=== PATIENT | male | born 1985 | race African-American/Black ===

== ENCOUNTER 2016-06-09 07:10 | Emergency (ER) | payer SELFPAY ==
[~2016-06-09] VITALS: Ht 182.9 cm; Wt 80.0 kg
[~2016-06-09 07:10] MED LIST: MOBI15TA PO; ROBA750T PO
[2016-06-09 07:12] VITALS: BP 143/75; PULSE 75; RESP 14; TEMP 97.9; O2SAT 99
--- NOTE | 2016-06-09 07:36 | PD ---
HPI Chief Complaint: Bite or Sting Time Seen by Provider: 07:33 Travel History International Travel<30 days: No Contact w/Intl Traveler<30days: No Traveled to known affect area: No History of Present Illness HPI Patient comes in for evaluation of a dog bite to his left calf that occurred yesterday morning. Patient reports animal control was called but is uncertain as they were able to capture the dog or not. Patient does not know whose dog it was or if the rabies vaccines are up-to-date. Patient states he is uncertain of his last tetanus shot. Patient states he took a shower and cleaned his leg yesterday denies doing anything else for this. Patient having some tenderness around the sites of the bite without radiation. PFSH Past Medical History Arthritis: Yes (BOTH LEGS) Depression: Yes Diabetes: No Diminished Hearing: No Psychiatric: Yes Migraines: Yes Schizophrenia: Yes Past Surgical History Body Medical Devices: SCREWS IN RT KNEE Social History Alcohol Use: Yes (OCC) Tobacco Use: Yes (OCCASIONAL/CIGARS) Substance Use: Yes (MARIJUANNA OCCASIONALLY) Allergies-Medications (Allergen,Severity, Reaction): Coded Allergies: No Known Allergies (Verified , 06/09/16) Reported Meds & Prescriptions Reported Meds & Active Scripts Active Augmentin (Amoxicillin-Clavulanate) 875-125 mg Tab 875 Mg PO BID 10 Days not for use in CrCl <30 ml/min. Review of Systems Except as stated in HPI: all other systems reviewed are Neg Physical Exam Narrative GENERAL: Well-developed, well nourished, in no acute distress, and non-ill appearing. SKIN: Warm and dry. Multiple superficial abrasions and one bite wound noted left calf. They're mildly tender to palpation. Afebrile, nonerythematous, and without drainage. HEAD: Atraumatic. Normocephalic. EYES: Pupils equal and round. EOMI. No scleral icterus. No injection or drainage. ENT: No nasal bleeding or discharge. Mucous membranes pink and moist. NECK: Trachea midline. Supple. No nuclear rigidity. RESPIRATORY: No accessory muscle use. No respiratory distress. MUSCULOSKELETAL: No obvious deformities. No clubbing. No cyanosis. No edema. Full range of motion. NEUROLOGICAL: Awake and alert. No obvious cranial nerve deficits. Motor grossly within normal limits. Normal speech. PSYCHIATRIC: Appropriate mood and affect; insight and judgment normal. Data Data Last Documented VS Vital Signs Date Time Temp Pulse Resp B/P Pulse Ox O2 Delivery O2 Flow Rate FiO2 06/09/16 07:12 97.9 75 14 143/75 99 Orders Tetanus/Diphtheria Tox Adult (Tetanus/Di (06/09/16 07:45) Rabies Vaccine Human Cell Inj (Imovax In (06/09/16 07:45) Rabies Immune Globulin Inj (Hyperrab S/D (06/09/16 08:00) MDM Medical Decision Making Medical Screen Exam Complete: Yes Emergency Medical Condition: Yes Differential Diagnosis Dog bite, rabies exposure, wound check, wound infection, other Narrative Course The patient suffered animal bite wound. There is no evidence of deep tissue involvement and/or local tendon involvement. There was no evidence to suggest foreign bodies. Visual and tactile exams were unremarkable. There was no evidence of neurovascular injury as well. Rabies prophylaxis was discussed with the patient and exposure appears mod risk and indicated. Rabies prophylaxis and treatment plan was discussed with the patient. Human rabies immune globulin ( HRIG) and initial Rabies vaccine was begun in the ED. The patient was given signs and symptom warnings for infection, such as increasing pain, pain with movement of involved extremity, redness, swelling, associated heat, pus or fever. The patient was given antibiotics to cover mouth lisa and instructions for timely follow up for wound recheck. The patient agreed with plan of care. Animal control was contacted per hospital protocol. Patient in no obvious distress upon re-evaluation. Patient was asked if they wanted to speak to my attending, which the patient did not wish to do at this time. Any questions/concerns in reference to patient diagnosis/condition discussed and clarified prior to patient's discharge. Reinforced sheer importance of close follow up with the health department. Instructed patient to return to ED immediately, if symptoms return/worsen. Pt showed understanding of above instructions. Further instructions and recommendations were detailed in discharge paperwork. Pt ambulated without difficulty out of ED at discharge. Procedures Procedure Narrative Verbal consent was obtained. Area was cleaned and prepped. Rabies immunoglobulin was injected IM in the left calf around the site of the dog bite. Patient tolerated procedure well. There is no complications. Diagnosis Primary Impression: Dog bite of calf Qualified Code: S81.852A - Dog bite of calf, left, initial encounter Referrals: [facility]. Patient Instructions: Animal Bite (ED), General Instructions, Rabies Immune Globulin (By injection), Rabies Vaccine (By injection) Additional Instructions: Follow-up with the health department on Sunday for your second rabies immunization. You will need a total of 3 more rabies immunizations to prevent from getting rabies. You can return here for additional immunizations unable to get in at the health department. Take all medication as prescribed. Keep wound dry and clean as possible using soap and water. Use Neosporin to promote healing. Return to the emergency department if symptoms get worse. Scripts Amoxicillin-Clavulanate (Augmentin)875-125 mg [id number] Mg PO BID 10 Days Ref 0 not for use in CrCl <30 ml/min. Prov:Anibal Londono MD 06/09/16 Disposition: 01 DISCHARGE HOME Condition: Stable Destin Jeff Jun 09, 2016 07:36
[2016-06-09] MEDS ORDERED: RABIES VACCINE HUMAN DIPL CELL 2.5 UNITS/ML SYRINGE IM ONE (07:45)
[2016-06-09] MEDS ORDERED: RABIES IMMUNE GLOBULIN INJ 1,500 UNITS/10 ML VIAL IM ONE ×2 (07:45→08:00)
[2016-06-09] MEDS ORDERED: TETANUS/DIPHTHERIA TOXOID ADULT 0.5 ML VIAL IM ONE (07:45)
[2016-06-09] MEDS ORDERED: AUGM875T PO (07:49)
== END 2016-06-09 09:30 | disposition home or self-care (01) ==
LOC: NEPB 07:10
DX: S81.852A Open bite, left lower leg, initial encounter (principal); Z23 Encounter for immunization; Z72.0 Tobacco use; Z87.39 Personal history of other diseases of the musculoskeletal system and connective tissue; Z86.59 Personal history of other mental and behavioral disorders; Z86.69 Personal history of other diseases of the nervous system and sense organs; W54.0XXA Bitten by dog, initial encounter
CPT/HCPCS: 90375; 90471; 90472; 90675; 90714; 96372

== ENCOUNTER 2016-06-21 04:59 | Emergency (ER) | payer SELFPAY ==
[~2016-06-21] VITALS: Ht 180.3 cm; Wt 75.0 kg
[~2016-06-21 04:59] MED LIST changes: +AUGM875T PO; -MOBI15TA PO; -ROBA750T PO
[2016-06-21 05:03] VITALS: BP 108/65; PULSE 72; RESP 16; TEMP 97.5; O2SAT 99
[2016-06-21] MEDS ORDERED: ASPIRIN 81 MG CHEW TAB CHEW ONE (06:00)
[2016-06-21] MEDS ORDERED: HYOSCYAMINE 0.125 MG TAB PO STA (06:01)
[2016-06-21] MEDS ORDERED: LIDOCAINE VISCOUS 2% SOLN 15 ML UDC PO STA (06:01)
--- NOTE | 2016-06-21 06:13 | PD ---
HPI Chief Complaint: stomach pain Time Seen by Provider: 06:08 Travel History International Travel<30 days: No Contact w/Intl Traveler<30days: No Traveled to known affect area: No History of Present Illness HPI 31-year-old black male presents to emergency Department with complaints of diffuse abdominal discomfort. He states that this came on a few hours ago. Mild in intensity. Cramping in nature. He denies any nausea vomiting. No diarrhea or dysuria. He states that he does not recall what he had for dinner last night. He denies any fever chills, cough, congestion, back pain or urinary symptoms. PFSH Past Medical History Arthritis: Yes (BOTH LEGS) Depression: Yes Diabetes: No Diminished Hearing: No Psychiatric: Yes Migraines: Yes Schizophrenia: Yes Tetanus Vaccination: < 5 Years Past Surgical History Body Medical Devices: SCREWS IN RT KNEE Social History Alcohol Use: Yes (OCC) Tobacco Use: Yes (OCCASIONAL/CIGARS) Substance Use: Yes (MARIJUANNA OCCASIONALLY) Allergies-Medications (Allergen,Severity, Reaction): Coded Allergies: No Known Allergies (Verified , 06/09/16) Reported Meds & Prescriptions Reported Meds & Active Scripts Active Augmentin (Amoxicillin-Clavulanate) 875-125 mg Tab 875 Mg PO BID 10 Days not for use in CrCl <30 ml/min. Review of Systems Except as stated in HPI: all other systems reviewed are Neg Physical Exam Narrative GENERAL: Well-developed, well-nourished in no acute distress. Nontoxic appearing. The patient is sleeping in examination room. He's falling back asleep during my history and exam. He does not appear to be in any discomfort whatsoever. He has no change in body habitus her posture when I examine his abdomen. He appears to continue to sleep. HEAD: Normocephalic, atraumatic. EYES: Pupils equal round and reactive. Extraocular motions intact. No scleral icterus. No injection or drainage. ENT: TMs clear without erythema. The external auditory canals clear. Nose: clear . Posterior pharynx is pink and moist. No tonsillar edema or exudate. Uvula midline. Airway patent. NECK: Trachea midline.Supple, nontender, moves head freely. No central bony tenderness or spasm. CARDIOVASCULAR: Regular rate and rhythm without murmurs, gallops, or rubs. RESPIRATORY: Clear to auscultation. Breath sounds equal bilaterally. No wheezes , rales, or rhonchi. GASTROINTESTINAL: Abdomen soft, non-tender, nondistended. No hepato-splenomegaly , or palpable masses. No guarding. EXTREMITIES: No clubbing, cyanosis, or edema. No joint tenderness, effusion, or edema noted. BACK: Nontender without deformity or crepitance. No flank tenderness. Data Data Last Documented VS Vital Signs Date Time Temp Pulse Resp B/P Pulse Ox O2 Delivery O2 Flow Rate FiO2 06/21/16 05:03 97.5 72 16 108/65 99 Orders Aspirin Chew (Aspirin Chew) (06/21/16 06:00) Al-Mag Hy-Si 40-40-4 Mg/Ml Liq (Mag-Al P (06/21/16 06:15) Lidocaine 2% Viscous (Xylocaine 2% Visco (06/21/16 06:01) Hyoscyamine (Levsin) (06/21/16 06:01) [facility] Medical Decision Making Medical Screen Exam Complete: Yes Emergency Medical Condition: Yes Medical Record Reviewed: Yes Differential Diagnosis Differential diagnoses: Pancreatitis, gastritis, electrolyte abnormality, UTI, appendicitis, GERD, malingering, food poisoning, diverticulitis Narrative Course Patient's exam is reassuring. He does not appear to be having any discomfort. He sleeps through the majority of my exam. Patient will be given 2 Levsin and a GI cocktail with Maalox and lidocaine. Patient was feeling improved. This is abdominal pain-resolved Diagnosis Primary Impression: Abdominal pain Qualified Code: R10.84 - Generalized abdominal pain Additional Instructions: Rest. Increase fluids. Maalox. 2 Zantac [id number] twice a day. Follow-up with your medical doctor in the next 2-3 days. Return to the ER if any problems. Med/Other Pt SpecificInfo: No Meds Exist/No RX given Disposition: 01 DISCHARGE HOME Condition: Stable Humble Voss Jun 21, 2016 06:12
[2016-06-21] MEDS ORDERED: ALUMINUM/MAGNESIUM/SIMETH 30 ML CUP PO ONE (06:15)
[2016-06-21 08:26] VITALS: BP 114/75
== END 2016-06-21 08:28 | disposition home or self-care (01) ==
LOC: NEPB 04:59
DX: R10.9 Unspecified abdominal pain (principal); Z72.0 Tobacco use; F12.90 Cannabis use, unspecified, uncomplicated
CPT/HCPCS: 99284

== ENCOUNTER 2016-07-08 08:43 | Emergency (ER) | payer SELFPAY ==
[~2016-07-08] VITALS: Ht 182.9 cm; Wt 79.5 kg
[2016-07-08 08:44] VITALS: BP 109/59; PULSE 68; RESP 16; TEMP 98; O2SAT 97
[2016-07-08] MEDS ORDERED: predniSONE 20 MG TAB PO ONE (09:15)
[2016-07-08] MEDS ORDERED: diphenhydrAMINE HCL 50 MG CAP PO ONE (09:15)
[2016-07-08] MEDS ORDERED: PRED20 PO (09:20)
--- NOTE | 2016-07-08 09:22 | PD ---
HPI Chief Complaint: Skin Problem Time Seen by Provider: 09:12 Travel History International Travel<30 days: No Contact w/Intl Traveler<30days: No Traveled to known affect area: No History of Present Illness HPI 31-year-old male presents to the emergency department for evaluation of itchy rash that started yesterday. He states this started on his back and now is on his bilateral upper extremities. He denies any fevers or chills. Denies any swelling of lips, tongue, throat. No angioedema. No difficulty breathing. Patient does state that he stayed at a hotel room recently. He did use different soap. He denies any chronic medical problems or taking prescribed medications. He denies any known allergies. No abdominal pain. No nausea or vomiting. No chest pain. He has no other complaints at this time. No other close family members or friends have similar symptoms. Patient has not taken any [id number] medications. PFSH Past Medical History Hx Anticoagulant Therapy: No Arthritis: Yes (BOTH LEGS) Depression: Yes Cardiovascular Problems: No Chemotherapy: No Cerebrovascular Accident: No Diabetes: No Diminished Hearing: No Psychiatric: Yes Respiratory: No Migraines: Yes Schizophrenia: Yes Past Surgical History Body Medical Devices: SCREWS IN RT KNEE Social History Alcohol Use: Yes (OCC) Tobacco Use: Yes (OCCASIONAL/CIGARS) Substance Use: Yes (MARIJUANNA OCCASIONALLY) Allergies-Medications (Allergen,Severity, Reaction): Coded Allergies: No Known Allergies (Verified , 06/09/16) Reported Meds & Prescriptions Reported Meds & Active Scripts Active Augmentin (Amoxicillin-Clavulanate) 875-125 mg Tab 875 Mg PO BID 10 Days not for use in CrCl <30 ml/min. Review of Systems Except as stated in HPI: all other systems reviewed are Neg Physical Exam Narrative GENERAL: Well-developed well-nourished male patient, ambulatory. Afebrile. SKIN: Warm and dry. Patient has erythematous plaques to back and bilateral upper extremities. ENT: Mucosa pink and moist. No erythema or exudates. No uvular edema. No uvular , palatal, or tonsillar deviation. Airway patent. Nasal turbinates appear normal without nasal blood, purulent drainage or septal hematoma. HEAD: Normocephalic. Atraumatic. EYES: No scleral icterus. No injection or drainage. NECK: Supple, trachea midline. No JVD or lymphadenopathy. CARDIOVASCULAR: Regular rate and rhythm without murmurs, gallops, or rubs. RESPIRATORY: Breath sounds equal bilaterally. No accessory muscle use. Lung sounds are clear to auscultation throughout. GASTROINTESTINAL: Abdomen soft, non-tender, nondistended. MUSCULOSKELETAL: No cyanosis, or edema. BACK: Nontender without obvious deformity. No CVA tenderness. Data Data Last Documented VS Vital Signs Date Time Temp Pulse Resp B/P Pulse Ox O2 Delivery O2 Flow Rate FiO2 07/08/16 08:44 98.0 68 16 109/59 97 Room Air Orders Diphenhydramine (Benadryl) (07/08/16 09:15) Prednisone (Deltasone) (07/08/16 09:15) MDM Medical Decision Making Medical Screen Exam Complete: Yes Emergency Medical Condition: Yes Medical Record Reviewed: Yes Differential Diagnosis urticaria vs. allergic reaction vs. scabies vs. contact dermatitis vs. bed bug bites Narrative Course 31 year old male presents to the emergency department for evaluation of an itchy rash since yesterday. Symptoms and physical are consistent with urticaria. Patient is given Benadryl and Prednisone in the emergency department. He will be discharged with a prescription for Prednisone and is instructed to take Benadryl over the counter as needed for itching. He is to follow up with a primary care physician or return for any emergent conditions. He verbalizes agreement and understanding. The patient was discharged in stable condition with instructions, including return instructions and follow up instructions. Diagnosis Primary Impression: Urticaria Referrals: Primary Care Physician call for appointment Patient Instructions: General Instructions, Urticaria (ED) Additional Instructions: Benadryl 25-50 mg every 6-8 hours as needed for itching. Take prednisone as directed. Start this tomorrow. Follow-up with your primary care physician. Return to the emergency department for any acute worsening of symptoms. Med/Other Pt SpecificInfo: Prescription(s) given Scripts Prednisone 20 Mg Tab40 Mg PO DAILY 4 Days Ref 0 Prov:Naa Chacon 07/08/16 Disposition: 01 DISCHARGE HOME Condition: Stable Naa Chacon Jul 08, 2016 09:21
== END 2016-07-08 09:38 | disposition home or self-care (01) ==
LOC: NEPB 08:43
DX: L50.9 Urticaria, unspecified (principal); F12.90 Cannabis use, unspecified, uncomplicated; Z72.0 Tobacco use
CPT/HCPCS: 99283; J7512; Q0163

== ENCOUNTER 2016-07-09 08:02 | Emergency (ER) | payer SELFPAY ==
[~2016-07-09] VITALS: Ht 182.9 cm; Wt 77.0 kg
[~2016-07-09 08:02] MED LIST changes: +PRED20 PO
[2016-07-09 08:04] VITALS: BP 123/57; PULSE 65; RESP 16; TEMP 98.1; O2SAT 96
--- NOTE | 2016-07-09 09:44 | PD ---
HPI Chief Complaint: Flank/Kidney Pain Time Seen by Provider: 09:40 Travel History International Travel<30 days: No Contact w/Intl Traveler<30days: No Traveled to known affect area: No History of Present Illness HPI 31-year-old male presents to the emergency department for a vague complaints. He states that his left lower back started hurting him approximately 3 hours ago. He states that he believes he has STD because a condom broke a few days ago. He states he is also having penile discharge for "a long time". He denies any abdominal pain. No testicular pain. No fevers or chills. No dysuria. He has no other complaints. PFSH Past Medical History Hx Anticoagulant Therapy: No Arthritis: Yes (BOTH LEGS) Depression: Yes Cardiovascular Problems: No Chemotherapy: No Cerebrovascular Accident: No Diabetes: No Diminished Hearing: No Psychiatric: Yes Respiratory: No Migraines: Yes Schizophrenia: Yes Tetanus Vaccination: < 5 Years Past Surgical History Body Medical Devices: SCREWS IN RT KNEE Social History Alcohol Use: Yes (OCC) Tobacco Use: Yes (OCCASIONAL/CIGARS) Substance Use: Yes (MARIJUANNA OCCASIONALLY) Allergies-Medications (Allergen,Severity, Reaction): Coded Allergies: No Known Allergies (Verified , 07/09/16) Reported Meds & Prescriptions Reported Meds & Active Scripts Active No Active Prescriptions or Reported Medications Review of Systems Except as stated in HPI: all other systems reviewed are Neg Physical Exam Narrative GENERAL: Well-developed well-nourished male patient, ambulatory. Afebrile. SKIN: Warm and dry. HEAD: Normocephalic. Atraumatic. EYES: No scleral icterus. No injection or drainage. NECK: Supple, trachea midline. No JVD or lymphadenopathy. CARDIOVASCULAR: Regular rate and rhythm without murmurs, gallops, or rubs. RESPIRATORY: Breath sounds equal bilaterally. No accessory muscle use. Lungs sounds are clear to auscultation. GASTROINTESTINAL: Abdomen soft, non-tender, nondistended. MUSCULOSKELETAL: No cyanosis, or edema. BACK: Nontender without obvious deformity. No CVA tenderness. GENITOURINARY: Circumcised. 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 No lesions or erythema. Yellow urethral discharge noted. This exam was done with an system technologist at bedside. Data Data Last Documented VS Vital Signs Date Time Temp Pulse Resp B/P Pulse Ox O2 Delivery O2 Flow Rate FiO2 07/09/16 08:04 98.1 65 16 123/57 96 Room Air Orders Gc And Chlamydia Pcr (07/09/16 09:40) Azithromycin Powd Pack (Zithromax Powd P (07/09/16 09:45) Ceftriaxone Inj (Rocephin Inj) (07/09/16 09:45) Lidocaine 1% Inj (50 Ml) (Xylocaine 1% I (07/09/16 09:45) MDM Medical Decision Making Medical Screen Exam Complete: Yes Emergency Medical Condition: Yes Medical Record Reviewed: Yes Differential Diagnosis Chlamydia versus gonorrhea versus dysuria Narrative Course 31-year-old male presents to the emergency department for vague complaints. He is concerned that he may have an STD because a condom broke. He does have yellow urethral discharge on exam. I stressed the patient the importance of following up with the health department. Urine is sent for chlamydia and gonorrhea. Patient will be given Rocephin 250 mg IM and azithromycin 1 g by mouth. He is to follow-up at the health department. Diagnosis Primary Impression: Possible exposure to STD Referrals: Primary Care Physician Patient Instructions: General Instructions, Sexually Transmitted Diseases (ED) Additional Instructions: Follow-up with your primary care physician or the health department for further STD workup. Please have all sexual partners tested and treated for STDs. Do not have sex until you and your partners have been tested and treated and 7 days after. Return to the emergency department for any acute worsening of symptoms. Med/Other Pt SpecificInfo: No Change to Meds Scripts No Active Prescriptions or Reported Meds Disposition: 01 DISCHARGE HOME Condition: Stable Naa Chacon Jul 09, 2016 09:44
[2016-07-09] MEDS ORDERED: cefTRIAXone 250 MG VIAL IM ONE (09:45)
[2016-07-09] MEDS ORDERED: AZITHROMYCIN PWD FOR SUSP 1 GM PACKET PO ONE (09:45)
[2016-07-09] MEDS ORDERED: LIDOCAINE HCL 1% 50 ML VIAL XX ONE (09:45)
[2016-07-09 12:29] LABS: CHLAMYDIA PCR NOT DETECTED (NOT DETECT); NEISSERIA PCR DETECTED (NOT DETECT)
== END 2016-07-09 10:33 | disposition home or self-care (01) ==
LOC: NETRI 08:02
DX: M54.5 Low back pain (principal); R36.9 Urethral discharge, unspecified; Z20.2 Contact with and (suspected) exposure to infections with a predominantly sexual mode of transmission; Z72.0 Tobacco use; Z87.39 Personal history of other diseases of the musculoskeletal system and connective tissue; Z86.59 Personal history of other mental and behavioral disorders; Z86.69 Personal history of other diseases of the nervous system and sense organs
CPT/HCPCS: 87491; 87591; 96372; 99283; J0696

== ENCOUNTER 2016-10-29 22:51 | Emergency (ER) | payer SELFPAY ==
[~2016-10-29] VITALS: Ht 182.9 cm; Wt 78.0 kg
[2016-10-29 23:02] VITALS: BP 109/61; PULSE 84; RESP 16; TEMP 97.8; O2SAT 97
--- NOTE | 2016-10-30 00:12 | PD ---
HPI Chief Complaint: Complaint Time Seen by Provider: 00:07 Travel History International Travel<30 days: No Contact w/Intl Traveler<30days: No Traveled to known affect area: No History of Present Illness HPI Patient comes in complaining of dysuria that began shortly after having reported protected sex. Patient states that he received a letter in the mail about 6 months ago saying he had gonorrhea and chlamydia, but states he was never treated. Patient denies any symptoms until today. Denies any fevers, nausea, vomiting, abdominal pain, back pain, radiation of pain, or testicular pain. Patient reports pain just when he voids. Denies doing anything making it better or worse. Denies doing anything for this prior coming to the emergency department. PFSH Past Medical History Hx Anticoagulant Therapy: No Arthritis: Yes (BOTH LEGS) Depression: Yes Cardiovascular Problems: No Chemotherapy: No Cerebrovascular Accident: No Diabetes: No Diminished Hearing: No Psychiatric: Yes Respiratory: No Migraines: Yes Schizophrenia: Yes Past Surgical History Body Medical Devices: SCREWS IN RT KNEE Social History Alcohol Use: Yes (OCC) Tobacco Use: Yes (OCCASIONAL/CIGARS) Substance Use: No Allergies-Medications (Allergen,Severity, Reaction): Coded Allergies: No Known Allergies (Verified , 10/29/16) Reported Meds & Prescriptions Reported Meds & Active Scripts Active No Active Prescriptions or Reported Medications Review of Systems Except as stated in HPI: all other systems reviewed are Neg Physical Exam Narrative GENERAL: Well-developed, well nourished, in no acute distress, and non-ill appearing. SKIN: Focused skin assessment warm and dry. HEAD: Atraumatic. Normocephalic. EYES: Pupils equal and round. EOMI. No scleral icterus. No injection or drainage. ENT: No nasal bleeding or discharge. Mucous membranes pink and moist. NECK: Trachea midline. Supple. No nuclear rigidity. RESPIRATORY: No accessory muscle use. No respiratory distress. GASTROINTESTINAL: Abdomen soft, non-tender, nondistended. Hepatic and splenic margins not palpable. No pulsatile mass. MUSCULOSKELETAL: No obvious deformities. No clubbing. No cyanosis. No edema. Full range of motion. NEUROLOGICAL: Awake and alert. No obvious cranial nerve deficits. Motor grossly within normal limits. Normal speech. PSYCHIATRIC: Appropriate mood and affect; insight and judgment normal. Data Data Last Documented VS Vital Signs Date Time Temp Pulse Resp B/P Pulse Ox O2 Delivery O2 Flow Rate FiO2 7/16/17 23:02 97.8 84 16 109/61 97 Room Air Orders Urinalysis - C+S If Indicated (10/30/16 00:01) Gc And Chlamydia Pcr (10/30/16 00:01) Azithromycin Powd Pack (Zithromax Powd P (10/30/16 00:15) Metronidazole (Flagyl) (10/30/16 00:15) Ceftriaxone Inj (Rocephin Inj) (10/30/16 00:15) Lidocaine Pf 1% Inj (Xylocaine-Mpf 1% In (10/30/16 00:15) MDM Medical Decision Making Medical Screen Exam Complete: Yes Emergency Medical Condition: No Differential Diagnosis UTI, gonorrhea, chlamydia, Trichomonas, other Narrative Course Patient in no obvious distress upon re-evaluation. Any questions/concerns in reference to patient diagnosis/condition discussed and clarified prior to patient's discharge. Reinforced sheer importance of close follow up with patient 's primary physician or primary care clinic and/or health Department. Instructed patient to return to ED immediately, if symptoms return/worsen. Pt showed understanding of above instructions. Further instructions and recommendations were detailed in discharge paperwork. Pt ambulated without difficulty out of ED at discharge. Diagnosis Primary Impression: Dysuria Additional Impression: Possible exposure to STD [facility] Patient Instructions: General Instructions, Sexually Transmitted Diseases (ED) Additional Instructions: Follow-up with your primary care physician and/or health Department for additional STD testing. Notify all sexual partners have them tested and treated. Do not have intercourse until all sexual partners tested and treated. Practice safe sex to prevent further STDs and/or unwanted pregnancies. If you would like a copy of your gonorrhea and chlamydia results bring a photo ID to medical records in 24-48 hours to get a copy. Return to the emergency department if symptoms get worse. Scripts No Active Prescriptions or Reported Meds Disposition: 01 DISCHARGE HOME Condition: Destin Billings Oct 30, 2016 00:12
[2016-10-30] MEDS ORDERED: LIDOCAINE HCL 1% PF 30 ML VIAL XX ONE (00:15)
[2016-10-30] MEDS ORDERED: metroNIDAZOLE 500 MG TAB PO ONE (00:15)
[2016-10-30] MEDS ORDERED: AZITHROMYCIN PWD FOR SUSP 1 GM PACKET PO ONE (00:15)
[2016-10-30 00:54] LABS: BLOOD, URINE SMALL (NEG); COMMENT (UR) CULTURE INDICATED; CULTURE IF INDICATED CULTURE INDICATED; GLUCOSE,URINE NEG (NEG); KETONE, URINE NEG (NEG); MUCUS URINE FEW /lpf (OCC); NITRITE,URINE NEG (NEG); PH, URINE 5.5 (5.0-8.5); URINE COLOR YELLOW (YELLW/STRAW)
[2016-10-30 04:46] LABS: CHLAMYDIA PCR NOT DETECTED (NOT DETECT); NEISSERIA PCR NOT DETECTED (NOT DETECT)
== END 2016-10-30 00:31 | disposition home or self-care (01) ==
LOC: NEPD 22:51
DX: R30.0 Dysuria (principal); F17.290 Nicotine dependence, other tobacco product, uncomplicated; M13.80 Other specified arthritis, unspecified site; F20.9 Schizophrenia, unspecified
CPT/HCPCS: 81001; 87086; 87491; 87591; 96372; 99284; J0696

== ENCOUNTER 2017-09-06 10:56 | Emergency (ER) | payer SELFPAY ==
[~2017-09-06] VITALS: Ht 182.9 cm; Wt 76.2 kg
[2017-09-06 11:10] VITALS: BP 115/68; PULSE 71; RESP 18; TEMP 98.7; O2SAT 100
--- NOTE | 2017-09-06 11:34 | PD ---
HPI Chief Complaint: Complaint Time Seen by Provider: 11:21 Travel History International Travel<30 days: No Contact w/Intl Traveler<30days: No Traveled to known affect area: No History of Present Illness HPI 32-year-old male presents to the emergency department requesting STD testing. Patient states he had a paper that stated that he had gonorrhea 2 years ago. He would like to make sure that he does not have chlamydia or gonorrhea again. He denies any penile discharge. No abdominal pain. No testicular pain. Patient states that he would like to be tested for all "diseases". Patient denies any symptoms or complaints at this time. He has not followed up outpatient. Mild severity. History Past Medical Histgory Hx Chemotherapy: No Social History Alcohol Use: Yes (OCC) Tobacco Use: Yes (OCCASIONAL/CIGARS) Allergies-Medications (Allergen,Severity, Reaction): Coded Allergies: No Known Allergies (Verified , 10/29/16) Reported Meds & Prescriptions Reported Meds & Active Scripts Active No Active Prescriptions or Reported Medications Review of Systems Except as stated in HPI: all other systems reviewed are Neg Physical Exam Narrative GENERAL: Well-nourished, well-developed male patient, ambulatory. Afebrile. SKIN: Focused skin assessment warm/dry. HEAD: Normocephalic. Atraumatic. EYES: No scleral icterus. No injection or drainage. NECK: Supple, trachea midline. No JVD or lymphadenopathy. CARDIOVASCULAR: Regular rate and rhythm without murmurs, gallops, or rubs. RESPIRATORY: Breath sounds equal bilaterally. No accessory muscle use. Lung sounds are clear to auscultation. GASTROINTESTINAL: Abdomen soft, non-tender, nondistended. MUSCULOSKELETAL: No cyanosis, or edema. BACK: Nontender without obvious deformity. No CVA tenderness. Data Data Last Documented VS Vital Signs Date Time Temp Pulse Resp B/P (MAP) Pulse Ox O2 Delivery O2 Flow Rate FiO2 09/06/17 11:10 98.7 71 18 115/68 (84) 100 MDM Medical Screen Exam Complete: Yes Emergency Medical Condition: No Narrative Course 32-year-old male presents to the emergency department requesting STD testing and testing for "all diseases". Patient has no symptoms or complaints at this time. He appears well. No emergent condition is identified on today's exam. A medical screening exam was performed: At the time of evaluation the presenting medical condition was determined not to be of an emergent nature. The patient was given the option of receiving additional care, but declined. Patient was given options for additional community resources from which to obtain care. The Patient Has Been advised to seek medical attention for their presenting complaint. The patient has been advised to return to the ER at any time if an emergent condition develops. Primary Impression: Encounter for medical screening examination Scripts No Active Prescriptions or Reported Meds Condition: Naa Wallace September 06, 2017 11:34
== END 2017-09-06 11:37 | disposition left against medical advice (07) ==
LOC: NEPK 10:56
DX: Z20.2 Contact with and (suspected) exposure to infections with a predominantly sexual mode of transmission (principal); F17.290 Nicotine dependence, other tobacco product, uncomplicated
CPT/HCPCS: 99281

== ENCOUNTER 2017-09-20 02:00 | Emergency (ER) | payer SELFPAY ==
[2017-09-20 02:03] VITALS: BP 108/57; PULSE 70; RESP 14; TEMP 98.3; O2SAT 98
--- NOTE | 2017-09-20 03:26 | PD ---
HPI Chief Complaint: Complaint Time Seen by Provider: 03:18 Travel History International Travel<30 days: No Contact w/Intl Traveler<30days: No Traveled to known affect area: No History of Present Illness HPI 32-year-old male presents requesting testing for gonorrhea. He reports that he has had urethral discharge. Symptom onset 1 decade ago. He reports dysuria associated with it. Burning sensation, constant, worse when urinating doctors. He reports that he has had gonorrhea in the past and this feels similar. He reports that he is sexually active with "too many to count" sexual partners. Denies any testicular scrotal pain, abdominal pain, flank pain, nausea or vomiting, fevers or chills. No other complaints. PFSH Past Medical History Hx Anticoagulant Therapy: No Arthritis: Yes (BOTH LEGS) Depression: Yes Cardiovascular Problems: No Chemotherapy: No Cerebrovascular Accident: No Diabetes: No Diminished Hearing: No Psychiatric: Yes Respiratory: No Immunizations Current: Yes Migraines: Yes Schizophrenia: Yes Past Surgical History Surgical History: No Previous Surgery Body Medical Devices: SCREWS IN RT KNEE Social History Alcohol Use: Yes (OCC) Tobacco Use: Yes (OCCASIONAL/CIGARS) Substance Use: No Allergies-Medications (Allergen,Severity, Reaction): Coded Allergies: No Known Allergies (Verified Adverse Reaction, Unknown, 09/20/17) Reported Meds & Prescriptions Reported Meds & Active Scripts Active No Active Prescriptions or Reported Medications Review of Systems Except as stated in HPI: all other systems reviewed are Neg Physical Exam Narrative GENERAL: Well-developed well-nourished male in no acute distress SKIN: Warm and dry. HEAD: Atraumatic. Normocephalic. EYES: Pupils equal and round. No scleral icterus. No injection or drainage. ENT: No nasal bleeding or discharge. Mucous membranes pink and moist. NECK: Trachea midline. No JVD. CARDIOVASCULAR: Regular rate and rhythm. No murmur appreciated. RESPIRATORY: No accessory muscle use. Clear to auscultation. Breath sounds equal bilaterally. GASTROINTESTINAL: Abdomen soft, non-tender, nondistended. Hepatic and splenic margins not palpable. examination: Normal-appearing scrotum penile shaft. There is no urethral discharge. No abnormal skin lesions. Data Data Last Documented VS Vital Signs Date Time Temp Pulse Resp B/P (MAP) Pulse Ox O2 Delivery O2 Flow Rate FiO2 6/7/18 02:03 98.3 70 14 108/57 (74) 98 Orders Orders Gc And Chlamydia Pcr (09/20/17 03:51) MDM Medical Decision Making Medical Screen Exam Complete: Yes Emergency Medical Condition: Yes Medical Record Reviewed: Yes Differential Diagnosis Gonococcal urethritis, nongonococcal urethritis, cystitis Narrative Course The patient will be tested for chlamydia and gonorrhea and treated empirically. Recommended follow-up at the health department for routine STD testing. Diagnosis Primary Impression: Dysuria Referrals: [facility] Dept. Additional Instructions: As discussed, follow-up at the health department for routine STD testing. Have all partners tested and treated for STDs as well prior to continuing with sexual activity. Return for any emergent medical conditions. Med/Other Pt SpecificInfo: No Change to Meds Scripts No Active Prescriptions or Reported Meds Disposition: 01 DISCHARGE HOME Condition: Stable José Miguel Charlton Sep 20, 2017 03:26
[2017-09-20] MEDS ORDERED: AZITHROMYCIN PWD FOR SUSP 1 GM PACKET PO ONE (04:00)
[2017-09-20] MEDS ORDERED: LIDOCAINE HCL 1% 50 ML VIAL XX ONE (04:00)
[2017-09-20] MEDS ORDERED: cefTRIAXone 250 MG VIAL IM ONE (04:00)
== END 2017-09-20 04:56 | disposition home or self-care (01) ==
LOC: NEPD 02:00
DX: R30.0 Dysuria (principal); R36.9 Urethral discharge, unspecified; M19.90 Unspecified osteoarthritis, unspecified site; F32.9 Major depressive disorder, single episode, unspecified; F20.9 Schizophrenia, unspecified; F17.290 Nicotine dependence, other tobacco product, uncomplicated; Z11.8 Encounter for screening for other infectious and parasitic diseases; Z11.3 Encounter for screening for infections with a predominantly sexual mode of transmission
CPT/HCPCS: 87491; 87591; 96372; 99283; J0696